=== PATIENT | male | born 1960 | race African-American/Black ===

== ENCOUNTER 2024-12-17 13:03 | Inpatient (IN) | payer OTHER, MEDICARE ==
[~2024-12-17] VITALS: Ht 170.2 cm; Wt 86.4 kg
[~2024-12-17 13:03] MED LIST: CYCL-837 PO; LIDO5CRE14 EX; MELO7.5T7 PO
--- NOTE | 2024-12-17 13:35 | ED.PDOC ---
History of Present Illness HPI Comments 64-year-old male came to the ER stating that he has been having abdominal pain since numerologist. He was at work when abdominal pain started. He had some food to eat ever since then he has been having abdominal pain. He did leave work go to the nearest ER which was intolerance. Turns did not have full workup stated that everything was normal sent home on nausea medication. While driving back from [facility] started to have abdominal pain. Abdominal pain nine of 10 with a nausea vomiting. History of hypertension. Denies any other symptoms. Time Seen by MD: 13:08 Reviewed Notes: Nurses Notes, Medications, Allergies Allergies: Coded Allergies: NO KNOWN ALLERGIES (Unverified , 12/17/24) Home Meds Active Scripts Lidocaine (Anorectal) (Lidocaine 5%) 5 % Cre, 5 % EX DAILYPRN PRN for 30 Days, #30 PATCH 0 Refills Prov:CLAY WAITE NP 09/04/23 Meloxicam (Meloxicam) 7.5 Mg Tab, 1 TAB PO DAILYP PRN for 30 Days, #30 TAB 0 Refills Prov:CLAY WAITE NP 09/04/23 Cyclobenzaprine Hcl (Cyclobenzaprine Hcl) 5 Mg Tab, 1 TAB PO QHSP PRN for 30 Days, #30 TAB 0 Refills Prov:CLAY WAITE NP 09/04/23 Information Source: Patient Mode of Arrival: Ambulatory Severity: Moderate Timing: Hours Duration: Since onset Past Medical History PAST MEDICAL HISTORY: HTN Surgical History: Denies all surgeries Family History Family History: Reviewed,noncontributory to illness Social History Smoker: Non-Smoker Alcohol: Denies ETOH Use Drugs: Denies Drug Use Constitutional: denies: chills, diaphoresis, fatigue, fever, malaise, sweats, weakness, others EENTM: denies: blurred vision, double vision, ear bleeding, ear discharge, ear drainage, ear pain, ear ringing, eye pain, eye redness, hearing loss, mouth pain, mouth swelling, nasal discharge, nose bleeding, nose congestion, nose pain, photophobia, tearing, throat pain, throat swelling, voice changes, others Respiratory: denies: cough, hemoptysis, orthopnea, SOB at rest, shortness of breath, SOB with excertion, stridor, wheezing, others Cardiovascular: denies: chest pain, dizzy spells, diaphoresis, Dyspnea on exertion, edema, irregular heart beat, left arm pain, lightheadedness, palpitations, PND, syncope, others Gastrointestinal: reports: abdominal pain, nausea, vomiting; denies: abdomen distended, blood streaked bowels, constipated, diarrhea, dysphagia, difficulty swallowing, hematemesis, melena, poor appetite, poor fluid intake, rectal bleeding, rectal pain, others Genitourinary: denies: burning, dysuria, flank pain, frequency, hematuria, incontinence, penile discharge, penile sore, pain, testicle pain, testicle swelling, urgency, others Neurological: denies: dizziness, fainting, headache, left sided numbness, left sided weakness, numbness, paresthesia, pre-existing deficit, right sided numbness, right sided weakness, seizure, speech problems, tingling, tremors, weakness, others Musculoskeletal: denies: back pain, gout, joint pain, joint swelling, muscle pain, muscle stiffness, neck pain, others Integumetry: denies: bruises, change in color, change in hair/nails, dryness, laceration, lesions, lumps, rash, wounds, others Allergic/Immunocompromised: denies: Difficulty Healing, Frequent Infections, Hives, Itching, others Hematologic/Lymphatic: denies: anemia, blood clots, easy bleeding, easy bruising, swollen glands, others Endocrine: denies: excessive hunger, excessive sweating, excessive thirst, excessive urination, flushing, intolerance to cold, intolerance to heat, unexplained weight gain, unexplained weight loss, others Psychiatric: denies: anxiety, bipolar disorder, depression, hopeless, panic disorder, schizophrenia, sleepless, suicidal, others Physical Exam General Appearance: Moderate Distress HEENT: Normal ENT Inspection, Pharynx Normal, TMs Normal Neck: Full Range of Motion, Non-Tender, Normal, Normal Inspection Respiratory: Chest Non-Tender, Lungs Clear, No Accessory Muscle Use, No Respiratory Distress, Normal Breath Sounds Cardiovascular: No Edema, No JVD, No Murmur, No Gallop, Normal Peripheral Pulses, Regular Rate/Rhythm Breast Exam: Deferred Gastrointestinal: No Organomegaly, Non Tender, No Pulsatile Mass, Normal Bowel Sounds, Soft Genitalia: Deferred Pelvic: Deferred Rectal: Deferred Extremities: No calf tenderness, Normal capillary refill, Normal inspection, Normal range of motion, Non-tender, No pedal edema Musculoskeletal : Apperance: Normal Neurologic: Alert, risk modeler II-XII nml as Tested, No Motor Deficits, Normal Affect, Normal Mood, No Sensory Deficits Cerebellar Function: Normal Reflexes: Normal Skin: Dry, Normal Color, Warm Peripheral Pulses: 3+ Radial (R), 3+ Radial (L) Lymphatic: No Adenopathy Was a procedure done? Was a procedure done?: No EKG EKG : Pulse Rate (adult): 82 Cardiac Rhythm: NSR Differential Dx Considerations may include: Gallstones Electrolyte imbalance X-Ray, Labs, Meds, VS Vital Signs Date Time Temp Pulse Resp B/P (MAP) Pulse Ox O2 Delivery O2 Flow Rate FiO2 12/17/24 13:53 99.4 81 15 153/86 (108) 99 99.4 Lab Test 12/17/24 13:40 Range/Units White Blood Count Pending Red Blood Count Pending Hemoglobin Pending Hematocrit Pending Mean Corpuscular Volume Pending Mean Corpuscular Hemoglobin Pending Mean Corpuscular Hemoglobin Concent Pending Red Cell Distribution Width Pending Platelet Count Pending Mean Platelet Volume Pending Neutrophils (%) (Auto) Pending Lymphocytes (%) (Auto) Pending Monocytes (%) (Auto) Pending Basophils (%) (Auto) Pending Neutrophils # (Auto) Pending Lymphocytes # (Auto) Pending Monocytes # (Auto) Pending Sodium Level Pending Potassium Level Pending Chloride Level Pending Carbon Dioxide Level Pending Anion Gap Pending Blood Urea Nitrogen Pending Creatinine Pending Glomerular Filtration Rate Calc Pending BUN/Creatinine Ratio Pending Serum Glucose Pending Calcium Level Pending Total Bilirubin Pending Aspartate Amino Transferase (AST) Pending Alanine Aminotransferase (ALT) Pending Alkaline Phosphatase Pending Troponin I High Sensitivity Pending Total Protein Pending Albumin Pending Patient alert. Complaining of abdominal pain nausea vomiting. Vitals stable. Answering questions. Reviewed his visit to [facility]. Was discharged on nausea medication. Possible gallstones. Possibly need nuclear scan. Establish intravenous access. Was given fluids. Was given morphine. Was given Zofran. Explained to the patient. Continue monitoring. Time of 1ST Reevaluation: 13:33 Reevaluation 1ST: Unchanged Patient Education/Counseling: Diagnosis, Treatment, Prognosis Family Education/Counseling: No Family Present SEPSIS Sepsis Screen Physician Orders Troponin-I Hs (12/17/24 13:25) Complete Blood Count (12/17/24 13:25) Comprehensive Metabolic Panel (12/17/24 13:25) Urinalysis (12/17/24 13:25) Sodium Chloride 0.9% (12/17/24 13:30) Sodium Chloride 0.9% (12/17/24 13:30) Ct Ab Pel Wo Con-No Oral Or Iv (12/17/24 13:25) Vital Signs Date Time Temp Pulse Resp B/P (MAP) Pulse Ox O2 Delivery O2 Flow Rate FiO2 12/17/24 13:53 99.4 81 15 153/86 (108) 99 99.4 Laboratory Tests Test 12/17/24 13:40 White Blood Count Pending Departure 1 Departure Time of Disposition: 13:34 Impression: Primary Impression: Acute abdominal pain Disposition: 09 ADMITTED INPATIENT Admit to: Med Surg Condition: Guarded Critical Care Note Critical Care Time?: No Stability Stability form required: No Heart Score Heart Score: Heart Score Response (Comments) Value History N/A 0 EKG N/A 0 Age N/A 0 Risk Factors N/A 0 Troponin N/A 0 Total 0 ANIKA TALAVERA MD Dec 17, 2024 13:35
[2024-12-17 14:05] LABS: Hematocrit 41.7 % (41.0-53.0); Hemoglobin 13.9 g/dL (13.5-17.5); Mean Corpuscular Hemoglobin 27.4 pg (28.0-32.0); Mean Corpuscular Volume 82.5 fL (80.0-100.0); Nucleated Red Blood Cells % 0.1 %
--- NOTE | 2024-12-17 14:12 | ECG ---
[facility] Test Date: 2024-12-17 Test Time: 13:57:06 Pat Name: VIOLA SERNA Department: er Room: [address] [place] [address] Gender: M Central Sterile Technician: gp : 1960 Requested By: ANIKA TALAVERA Order Number: [id number] Reading MD: Jesus Doshi Measurements Intervals Murray Rate: 82 P: 30 ND: 178 QRS: 100 QRSD: 94 T: -29 QT: 354 QTc: 414 Interpretive Statements Sinus rhythm Right axis deviation Abnormal T, consider ischemia, inferior leads Electronically Signed On 12-19-2024 16:58:48 PDT by Jesus Doshi Please click the below link to view image of tracing.
[2024-12-17 14:22] LABS: Alanine Aminotransferase 35 U/L (7-40); Albumin 4.5 g/dL (3.2-4.8); Alkaline Phosphatase 59 U/L (46-116); Anion Gap 9 (5-15); BUN/Creatinine Ratio 9.7 (10.0-20.0); Bilirubin, Total 0.8 mg/dL (0.2-1.0); Blood Urea Nitrogen 12 mg/dL (9-23); Calcium 10.1 mg/dL (8.7-10.4); Carbon Dioxide 26 mmol/L (20-31); Chloride 105 mmol/L (98-107); Potassium 4.3 mmol/L (3.5-5.1); Sodium 140 mmol/L (136-145); Total Protein 6.9 g/dL (5.7-8.2)
[2024-12-17 14:23] LABS: Glucose 122 mg/dL (74-106)
[2024-12-17 15:49] LABS: Urine Budding Yeast OCCASIONAL /hpf (None Seen); Urine Protein, UAD TRACE (Negative)
[2024-12-17] MEDS: MORPHINE SULFATE 4 MG/ML SYR/VIAL IV ONE (15:49)
[2024-12-17] MEDS: SODIUM CHLORIDE 0.9% 1,000 ML IV ONE ×2 (15:59→16:07)
[2024-12-17 16:06] VITALS: PULSE 79; RESP 16; O2SAT 98
[2024-12-17] MEDS: ONDANSETRON HCL 4 MG/2 ML VIAL IV ONE (16:06)
[2024-12-17] MEDS: KETOROLAC TROMETH 30 MG/ML 1ML VIAL IV ONE (16:07)
[2024-12-17] MEDS ORDERED: ONDANSETRON HCL 4 MG/2 ML VIAL IV PRN (16:30)
[2024-12-17] MEDS ORDERED: hydrALAZINE HCL 20 MG/ML VL IV PRN ×2 (16:30→17:45)
[2024-12-17] MEDS ORDERED: ACETAMINOPHEN 325 MG TAB PO PRN (16:30)
[2024-12-17] MEDS ORDERED: HYDROmorphone HCL 2 MG/ML VL/or syr IV PRN (16:30)
[2024-12-17] MEDS: SODIUM CHLORIDE 0.9% 1,000 ML IV SCH (16:30)
[2024-12-17] MEDS: PANTOPRAZOLE 40 MG/10 ML VIAL INJ IV ONE (16:55)
[2024-12-17] MEDS: IOHEXOL 300 MG/ML 100ML BOTTLE IJ ONE (17:16)
--- NOTE | 2024-12-17 17:42 | DVHHP2 ---
History of Present Illness Reason for Visit: Acute abdominal pain History of Present Illness The patient is a 64-year-old male with past medical history hypertension and hyperlipidemia who presented to [facility] ED with complaint of abdominal pain. Patient reports symptoms progressively get worse with nausea, vomiting, and chills, rating pain 9/10 numeric scale, getting worse that prompted this visit. Patient was seen and evaluated in the ED, laboratory data shows WBC 8.4, platelets 302, sodium 140, potassium 4.3, BUN 12, creatinine 1.24, GFR 65, glucose 122, hemoglobin A1c 6.1, calcium 10.1, troponin < 3, blood pressure 147/84, heart rate 79, temperature 99.4 F, O2 saturation 98% on room a ir. Abdomen/pelvis CT showed no findings to suggest bowel obstruction, no nephrolithiasis, hydronephrosis, revealing prostate measures 5.1 x 5.2 cm. Patient was given Toradol 30 mg IV x1, please see medication orders section in the computer. On my assessment, patient denied chest pain, no headache, no dizziness, no shortness of breaths, no nausea or vomiting at this moment, noted low-grade fever and chills. Patient was admitted for further evaluation and medical management. Past Medical History HTN, HLD Past Surgical History Denies all surgeries Family History Reviewed, noncontributory to the management of this case. Past Social History The patient lives at home, denies smoking, alcohol or illicit drugs abuse. Review of Systems Constitutional: Yes: Chills; No: Fever, Sweats, Weakness, Malaise, Other Eyes: No: Pain, Vision change, Conjunctivae inflammation, Eyelid inflammation, Other, Redness ENT: No: Ear pain, Ear discharge, Nose pain, Nose discharge, Nose congestion, Mouth pain, Mouth swelling, Throat pain, Throat swelling, Other Respiratory: No: Cough, Dry, Shortness of breath, SOB with excertion, Wheezing, Hemoptysis, Pleuritic Pain, Sputum, Wheezing, Other Cardiovascular: No: Chest Pain, Palpitations, Orthopnea, Paroxysmal Noc. Dyspnea, Edema, Lt Headedness, Other Gastrointestinal: Nausea, Vomiting, Abdominal Pain; No: Diarrhea, Constipation, Melena, Hematochezia, Other Genitourinary: No Dysuria, No Frequency, No Incontinence, No Hematuria, No Retention, No Other Musculoskeletal: No: other, neck pain, shoulder pain, arm pain, back pain, hand pain, leg pain, foot pain Skin: No: Rash, Lesions, Jaundice, Bruising, Other Neurological: No: Weakness, Numbness, Incoordination, Change in speech, Confusion, Seizures, Other Allergies: Coded Allergies: Morphine and Codeine (Verified Allergy, Unknown, 12/17/24) Medications Current Medications Medications Dose Ordered Sig/Robel Route Start Time Stop Time Status Last Admin Dose Admin Pantoprazole Sodium 40 mg DAILY IV 12/18/24 10:00 Hydralazine HCl 10 mg Q6HP PRN IV 12/17/24 16:30 Hydromorphone HCl 0.5 mg Q4HPRN PRN IV 12/17/24 16:30 Hold Sodium Chloride 1,000 ml @ 60 mls/hr [id number] IV 12/17/24 16:30 Ondansetron HCl 4 mg Q4HP PRN IV 12/17/24 16:30 Acetaminophen 650 mg Q6HP PRN PO 12/17/24 16:30 Exam Vital Signs Vital Signs Date Time Temp Pulse Resp B/P (MAP) Pulse Ox O2 Delivery O2 Flow Rate FiO2 12/17/24 16:06 79 16 98 Room Air* 0 21 12/17/24 16:06 147/84 (105) 12/17/24 13:53 99.4 99.4 General Appearance: Alert, Oriented X3, Cooperative, No acute distress HEENT: Atraumatic, PERRLA, EOMI, Mucous membr. moist/pink Respiratory: Clear to auscultation, Normal air movement Cardiovascular: Regular rate, Normal S1, Normal S2, No murmurs Abdominal: Normal bowel sounds, Soft, No tenderness, No hepatospenomegaly, No masses Extremities: No clubbing, No cyanosis, No edema, Normal pulses, No tenderness/swelling Skin: No rashes, No breakdown, No significant lesion Neuro: Normal gait, Normal speech, Strength at 5/5 X4 ext, Normal tone, Sensation intact, Cranial nerves 3-12 NL, Reflexes 2+ Psych/Mental Status: Mental status NL, Mood NL Labs/Xrays Labs Test 12/17/24 15:32 12/17/24 13:40 Range/Units Urine Color Yellow Yellow Urine Clarity Clear Clear Urine pH 7.5 5.0-9.0 Urine Specific [place] 1.033 1.001-1.035 Urine Protein Trace H Negative Urine Ketones Negative Negative Urine Blood Negative Negative /uL Urine Nitrite Negative Negative Urine Bilirubin Negative Negative Urine Urobilinogen Normal Negative mg/dL Urine Leukocyte Esterase Negative Negative /uL Urine RBC 3 0 - 3 /hpf Urine Microscopic WBC 7 H 0-3 /HPF Urine Squamous Epithelial Cells Few <5 /hpf Urine Bacteria None seen None Seen /hpf Urine Mucus Few None Seen Urine Yeast (Budding) Occasional None Seen /hpf Urine Glucose Normal Normal mg/dL White Blood Count 8.4 4.4-10.8 10^3/uL Red Blood Count 5.05 4.5-5.90 10^6/uL Hemoglobin 13.9 13.5-17.5 g/dL Hematocrit 41.7 41.0-53.0 % Mean Corpuscular Volume 82.5 80.0-100.0 fL Mean Corpuscular Hemoglobin 27.4 L 28.0-32.0 pg Mean Corpuscular Hemoglobin Concent 33.2 32.0-36.0 g/dL Red Cell Distribution Width 14.2 11.8-14.3 % Platelet Count 302 140-450 10^3/uL Mean Platelet Volume 8.2 6.9-10.8 fL Neutrophils (%) (Auto) 79.0 37.0-80.0 % Lymphocytes (%) (Auto) 14.6 10.0-50.0 % Monocytes (%) (Auto) 5.9 0.0-12.0 % Eosinophils (%) (Auto) 0.1 0.0-7.0 % Basophils (%) (Auto) 0.4 0.0-2.0 % Neutrophils # (Auto) 6.6 1.6-8.6 10 ^3/uL Lymphocytes # (Auto) 1.2 0.4-5.4 10 ^3/uL Monocytes # (Auto) 0.5 0-1.3 10 ^3/uL Eosinophils # (Auto) 0 0-0.8 10 ^3/uL Basophils # (Auto) 0 0-0.2 10 ^3/uL Nucleated Red Blood Cells 0.1 % Sodium Level 140 136-145 mmol/L Potassium Level 4.3 3.5-5.1 mmol/L Chloride Level 105 98-107 mmol/L Carbon Dioxide Level 26 20-31 mmol/L Anion Gap 9 5-15 Blood Urea Nitrogen 12 9-23 mg/dL Creatinine 1.24 0.700-1.30 mg/dL Glomerular Filtration Rate Calc 65 >90 mL/min BUN/Creatinine Ratio 9.7 L 10.0-20.0 Serum Glucose 122 H 74-106 mg/dL Calcium Level 10.1 8.7-10.4 mg/dL Total Bilirubin 0.8 0.2-1.0 mg/dL Aspartate Amino Transferase (AST) 27 13-40 U/L Alanine Aminotransferase (ALT) 35 7-40 U/L Alkaline Phosphatase 59 46-116 U/L Troponin I High Sensitivity < 3 L </=54 ng/L Total Protein 6.9 5.7-8.2 g/dL Albumin 4.5 3.2-4.8 g/dL PATIENT: VIOLA SERNA ACCT: [id number] UNIT: [id number] : 1960 LOC: OVERFLOW ROOM / BED: [address] [place] [address] AGE / SEX: 64 / M ADM STATUS: ADM IN SERVICE 1629 ORDERING PHYSICIAN: LANEY JOHNSON DNP PROCEDURE(s): ABPEL - CT AB PELVIS W WO CON-IV ONLY REASON: Nausea and vomiting ORDER NUMBER(s): [id number], ACCESSION NUMBER(s): [id number] Exam: CT CT AB PELVIS W WO CON-IV ONLY History: Nausea and vomiting Comparison Study: None Contrast: Type of contrast: Omnipaque 300 Contrast injected: 100 mL Contrast wasted: 0 TECHNIQUE: A digital assistant vice president image was obtained. During the uneventful, intravenous administration of contrast material, multislice data acquisition was obtained through the abdomen and pelvis. The data set was subsequently reconstructed into axial images. Images were reviewed on a work station using a combination of axial and multiplanar using a variety of window levels and settings. Radiation Dose Information: CT Dose: CTDI volume is 18.03 mGy. Dose-length product is 1998.24 mGy*cm FINDINGS: Lung Bases: No acute or significant lung base finding. Normal heart size. No pleural or pericardial effusion. Liver: The liver is normal in size. No focal lesions. Normal hepatic vascular enhancement. Gallbladder and Biliary Tree: Unremarkable Spleen: Unremarkable Pancreas: The pancreas is normal in appearance without focal lesions or abnormal enhancement. Adrenal Glands: Unremarkable Kidneys: Kidneys demonstrate normal symmetric enhancement without focal lesions, calculi or hydronephrosis. Bladder: Unremarkable Bowel: The stomach is grossly normal in appearance. Small bowel and colon are normal in caliber and distribution. The appendix is not visualized; however, no secondary findings of acute appendicitis identified. Ascites: Absent Lymphadenopathy: No mesenteric, retroperitoneal or periportal lymphadenopathy. Abdominal Wall and Mesentery: Unremarkable. Vasculature: The visualized abdominal aorta is normal in size and caliber. Abdominal and pelvic vessels demonstrate normal enhancement. Pelvic Organs: Prostate measures 5.1 x 5.2 cm. Correlate with PSA. Musculoskeletal: No aggressive focal bony lesions, acute fractures or dislocation. Soft tissues: Unremarkable. IMPRESSION: 1. No findings to suggest bowel obstruction. 2. No abnormally dilated small bowel or colon. 3. No nephrolithiasis or hydronephrosis. 4. Prostate measures 5.1 x 5.2 cm if of clinical concern correlate with PSA. SEPSIS Sepsis Screen Date sepsis recognized/suspect: Dec 17, 2024 Time Sepsis recognized/suspect: 1302 Recent Procedure: No On Antibiotic Therapy: No Respiratory Rate >20: No Heart Rate >90: No Temp<36 C (96.8 F) or >38.3 C: No SBP <90 or MAP <65 mmHG: No New Acute Mental Status Change: No Is the patient on CPAP, BIPAP,: No Physician Orders Sodium Chloride 0.9% (12/17/24 13:30) Ct Ab Pelvis W Wo Con-Iv Only (12/17/24 16:29) Pantoprazole (Protonix) (12/18/24 10:00) Hydralazine Injection (Apresoline Inject (12/17/24 16:30) Hydromorphone Injection (Dilaudid Inject (12/17/24 16:30) Allergies (12/17/24 16:29) Code Status (12/17/24 16:29) Sodium Chloride 0.9% (12/17/24 16:30) Oxygen Per Hour (12/17/24 16:29) Ondansetron Hcl (Zofran) (12/17/24 16:30) Complete Blood Count (12/18/24 04:00) Comprehensive Metabolic Panel (12/18/24 04:00) Condition: Serious (12/17/24 16:29) Acetaminophen Tablet (Tylenol Tablet) (12/17/24 16:30) Clear Liq Diet (12/17/24 Dinner) Bedrest With Bathroom Privileg (12/17/24 16:29) Sequential Compression Device (12/17/24 ) Metoprolol Tartrate Tablet (Lopressor Ta (12/17/24 22:00) Losartan Tablet (Cozaar Tablet) (12/18/24 10:00) Atorvastatin (Lipitor) (12/17/24 22:00) Hydralazine Injection (Apresoline Inject (12/17/24 17:45) Hemoglobin A1c (12/17/24 17:39) Admit (12/17/24 17:39) Nitroglycerin Sublingual (Ntrostat Subli (12/17/24 17:45) Morphine Sulfate Injection (12/17/24 17:45) Notify Of Changes From Base (12/17/24 17:39) Emergency Dysrhythmia Protocol (12/17/24 17:39) Oxygen By Nasal Cannula (12/17/24 17:39) Vital Signs Date Time Temp Pulse Resp B/P (MAP) Pulse Ox O2 Delivery O2 Flow Rate FiO2 12/17/24 16:06 79 16 98 Room Air* 0 21 12/17/24 16:06 79 16 147/84 (105) 98 12/17/24 14:01 82 12/17/24 13:57 82 12/17/24 13:53 99.4 81 15 153/86 (108) 99 99.4 Laboratory Tests Test 12/17/24 13:40 White Blood Count 8.4 10^3/uL (4.4-10.8) Medications Medications Dose Ordered Sig/Robel Route Start Time Stop Time Status Last Admin Dose Admin Ketorolac Tromethamine 30 mg ONCE ONCE IV 12/17/24 16:00 12/17/24 16:02 DC 12/17/24 16:07 30 MG Ondansetron HCl 4 mg ONCE ONCE IV 12/17/24 13:30 12/17/24 13:31 DC 12/17/24 16:06 4 MG Pantoprazole Sodium 40 mg ONCE ONCE IV 12/17/24 16:30 12/17/24 16:43 DC 12/17/24 16:55 40 MG Sodium Chloride 1,000 ml @ 1,000 mls/hr Q1H ONCE IV 12/17/24 13:30 7/21/25 14:29 DC 12/17/24 16:07 1,000 MLS/HR Assessment/Plan Assessment/Plan Acute abdominal pain Pre-diabetes Fever, unspecified BPH Benign prostatic hyperplasia Plan 1. Admit to telemetry unit 2. Breathing treatment 3. Pain control management 4. Management of fluids and electrolytes 5. Consultation for hospitalist 6. Diagnostic tests abdomen/pelvis CT 7. DVT prophylaxis on SCDs 8. Repeat labs CBC, CMP in a.m. 9. Continue with current medical management 10. Treatment plan discussed with patient and RN. Patient verbalized understanding. Plan discussed with: Patient, Other (RN) My Orders Orders - LANEY JOHNSON DNP Procedure Category Date Status Time Ct Ab Pelvis W Wo CT 12/17/24 Logged Con-Iv Only 16:29 Pantoprazole PHA 12/18/24 In Process (Protonix) 10:00 Hydralazine Injection PHA 12/17/24 In Process (Apresoline Inject 16:30 Hydromorphone PHA 12/17/24 In Process Injection (Dilaudid 16:30 Allergies JULIO 12/17/24 In Process 16:29 Code Status CODE 12/17/24 Transmitted 16:29 Sodium Chloride 0.9% PHA 12/17/24 In Process 16:30 Oxygen Per Hour RT 12/17/24 Transmitted 16:29 Ondansetron Hcl PHA 12/17/24 In Process (Zofran) 16:30 Complete Blood Count LAB 12/18/24 Verified 04:00 Comprehensive LAB 12/18/24 Verified Metabolic Panel 04:00 Condition: Serious JULIO 12/17/24 In Process 16:29 Acetaminophen Tablet PHA 12/17/24 In Process (Tylenol Tablet) 16:30 Clear Liq Diet DIET 12/17/24 Transmitted Dinner Bedrest With Bathroom JULIO 12/17/24 In Process Privileg 16:29 Sequential JULIO 12/17/24 In Process Compression Device Metoprolol Tartrate PHA 12/17/24 Transmitted Tablet (Lopressor Ta 22:00 Losartan Tablet PHA 12/18/24 Transmitted (Cozaar Tablet) 10:00 Atorvastatin (Lipitor) PHA 12/17/24 Transmitted 22:00 Hydralazine Injection PHA 12/17/24 Transmitted (Apresoline Inject 17:45 Hemoglobin A1c LAB 12/17/24 Transmitted 17:39 Admit ADMIT 12/17/24 Transmitted 17:39 Nitroglycerin [facility] 12/17/24 Transmitted Sublingual (Ntrostat 17:45 Morphine Sulfate PHA 12/17/24 Transmitted Injection 17:45 Notify Md Of Changes [facility] 12/17/24 Transmitted From Base 17:39 Emergency Dysrhythmia [facility] 12/17/24 Transmitted Protocol 17:39 Oxygen By Nasal RT 12/17/24 Transmitted Cannula 17:39 Problem List: (1) Acute abdominal pain (2) Pre-diabetes (3) Fever, unspecified (4) BPH (benign prostatic hyperplasia) Date of Service: Dec 17, 2024 Billing Provider: LANEY JOHNSON DNP Common Visit Codes: [id number] INP/OBS CARE (HIGH) LANEY JOHNSON DNP Dec 17, 2024 17:42
[2024-12-17] MEDS ORDERED: NITROGLYCERIN 0.4 MG SL TAB SL PRN (17:45)
[2024-12-17] MEDS ORDERED: MORPHINE SULFATE INJ 2 MG/ml SYRG IV PRN (17:45)
[2024-12-17 18:15] VITALS: BP 156/80; PULSE 81; RESP 18; TEMP 98.7; O2SAT 96
[2024-12-17 18:17] VITALS: BP 156/80; PULSE 81; RESP 18; TEMP 98.7; O2SAT 96
--- NOTE | 2024-12-17 18:46 | DVH ---
Exam: CT CT AB PELVIS W WO CON-IV ONLY History: Nausea and vomiting Comparison Study: None Contrast: Type of contrast: Omnipaque 300 Contrast injected: 100 mL Contrast wasted: 0 TECHNIQUE: A digital line mechanic image was obtained. During the uneventful, intravenous administration of c ontrast material, multislice data acquisition was obtained through the abdomen and pelvis. The data s et was subsequently reconstructed into axial images. Images were reviewed on a work station using a c ombination of axial and multiplanar using a variety of window levels and settings. Radiation Dose Information: CT Dose: CTDI volume is 18.03 mGy. Dose-length product is 1998.24 mGy*cm FINDINGS: Lung Bases: No acute or significant lung base finding. Normal heart size. No pleural or pericardial effusion. Liver: The liver is normal in size. No focal lesions. Normal hepatic vascular enhancement. Gallbladder and Biliary Tree: Unremarkable Spleen: Unremarkable Pancreas: The pancreas is normal in appearance without focal lesions or abnormal enhancement. Adrenal Glands: Unremarkable Kidneys: Kidneys demonstrate normal symmetric enhancement without focal lesions, calculi or hydroneph rosis. Bladder: Unremarkable Bowel: The stomach is grossly normal in appearance. Small bowel and colon are normal in caliber and d istribution. The appendix is not visualized; however, no secondary findings of acute appendicitis janelle ntified. Ascites: Absent Lymphadenopathy: No mesenteric, retroperitoneal or periportal lymphadenopathy. Abdominal Wall and Mesentery: Unremarkable. Vasculature: The visualized abdominal aorta is normal in size and caliber. Abdominal and pelvic vess els demonstrate normal enhancement. Pelvic Organs: Prostate measures 5.1 x 5.2 cm. Correlate with PSA. Musculoskeletal: No aggressive focal bony lesions, acute fractures or dislocation. Soft tissues: Unremarkable. IMPRESSION: 1. No findings to suggest bowel obstruction. 2. No abnormally dilated small bowel or colon. 3. No nephrolithiasis or hydronephrosis. 4. Prostate measures 5.1 x 5.2 cm if of clinical concern correlate with PSA. All CT scans at this medical facility are performed using dose modulation techniques as appropriate t o a performed exam including the following: Automated exposure control was utilized; adjustment of th e MA and/or KV according to patient size; and use of iterative reconstruction technique.
[2024-12-17] MEDS: METOPROLOL TARTRATE 25 MG TAB PO SCH (21:35)
[2024-12-17] MEDS: ATORVASTATIN 20 MG TAB PO SCH (21:36)
[2024-12-18 01:20] VITALS: BP 145/70; PULSE 69; RESP 16; TEMP 98; O2SAT 98
[2024-12-18 05:04] LABS: Alanine Aminotransferase 26 U/L (7-40); Albumin 4.0 g/dL (3.2-4.8); Alkaline Phosphatase 54 U/L (46-116); Anion Gap 10 (5-15); BUN/Creatinine Ratio 8.6 (10.0-20.0); Bilirubin, Total 0.9 mg/dL (0.2-1.0); Blood Urea Nitrogen 11 mg/dL (9-23); Carbon Dioxide 25 mmol/L (20-31); Glucose 92 mg/dL (74-106); Hematocrit 40.1 % (41.0-53.0); Hemoglobin 13.2 g/dL (13.5-17.5); Mean Corpuscular Hemoglobin 27.3 pg (28.0-32.0); Mean Corpuscular Volume 82.8 fL (80.0-100.0); Nucleated Red Blood Cells % 0.0 %; Potassium 4.1 mmol/L (3.5-5.1); Sodium 143 mmol/L (136-145); Total Protein 6.4 g/dL (5.7-8.2)
[2024-12-18 05:07] LABS: Calcium 8.7 mg/dL (8.7-10.4); Chloride 108 mmol/L (98-107)
[2024-12-18] MEDS: PANTOPRAZOLE 40 MG/10 ML VIAL INJ IV SCH (10:15)
[2024-12-18] MEDS: LOSARTAN POTASSIUM 50 MG TAB PO SCH (10:15)
[2024-12-18 10:18] LABS: Amphetamine Screen, Urine Neg (NEGATIVE); Barbiturate Scree,Urine Neg (NEGATIVE); Benzodiazephine Screen, Urine Neg (NEGATIVE); Cannabinoid Screen, Urine Neg (NEGATIVE); Cocaine Screen, Urine Neg (NEGATIVE); Opiate Scree,Urine Neg (NEGATIVE); Phencyclidine Screen, Urine Neg (NEGATIVE)
[2024-12-18] MEDS ORDERED: PANT40TA2 PO (12:45)
--- NOTE | 2024-12-18 13:26 | DVHDSRES ---
Discharge Summary Date of Admission Resident Creating Document: LUCIO ADORNO RESIDENT Dec 17, 2024 at 17:39 Date of Discharge: Dec 18, 2024 Admitting Diagnosis acute abdominal pain Labs/Diagnostic Data: Laboratory Results Test 12/18/24 04:08 12/17/24 19:29 12/17/24 15:32 12/17/24 13:40 White Blood Count 8.3 10^3/uL (4.4-10.8) Red Blood Count 4.84 10^6/uL (4.5-5.90) Hemoglobin 13.2 g/dL (13.5-17.5) Hematocrit 40.1 % (41.0-53.0) Mean Corpuscular Volume 82.8 fL (80.0-100.0) Mean Corpuscular Hemoglobin 27.3 pg (28.0-32.0) Mean Corpuscular Hemoglobin Concent 33.0 g/dL (32.0-36.0) Red Cell Distribution Width 14.1 % (11.8-14.3) Platelet Count 301 10^3/uL (140-450) Mean Platelet Volume 8.1 fL (6.9-10.8) Neutrophils (%) (Auto) 56.7 % (37.0-80.0) Lymphocytes (%) (Auto) 31.7 % (10.0-50.0) Monocytes (%) (Auto) 11.1 % (0.0-12.0) Eosinophils (%) (Auto) 0.3 % (0.0-7.0) Basophils (%) (Auto) 0.2 % (0.0-2.0) Neutrophils # (Auto) 4.7 10 ^3/uL (1.6-8.6) Lymphocytes # (Auto) 2.6 10 ^3/uL (0.4-5.4) Monocytes # (Auto) 0.9 10 ^3/uL (0-1.3) Eosinophils # (Auto) 0 10 ^3/uL (0-0.8) Basophils # (Auto) 0 10 ^3/uL (0-0.2) Nucleated Red Blood Cells 0.0 % Sodium Level 143 mmol/L (136-145) Potassium Level 4.1 mmol/L (3.5-5.1) Chloride Level 108 mmol/L (98-107) Carbon Dioxide Level 25 mmol/L (20-31) Anion Gap 10 (5-15) Blood Urea Nitrogen 11 mg/dL (9-23) Creatinine 1.28 mg/dL (0.700-1.30) Glomerular Filtration Rate Calc 62 mL/min (>90) BUN/Creatinine Ratio 8.6 (10.0-20.0) Serum Glucose 92 mg/dL (74-106) Calcium Level 8.7 mg/dL (8.7-10.4) Total Bilirubin 0.9 mg/dL (0.2-1.0) Aspartate Amino Transferase (AST) 22 U/L (13-40) Alanine Aminotransferase (ALT) 26 U/L (7-40) Alkaline Phosphatase 54 U/L (46-116) Total Protein 6.4 g/dL (5.7-8.2) Albumin 4.0 g/dL (3.2-4.8) Urine Color Yellow (Yellow) Urine Clarity Clear (Clear) Urine pH 7.5 (5.0-9.0) Urine Specific [place] 1.033 (1.001-1.035) Urine Protein Trace (Negative) Urine Ketones Negative (Negative) Urine Blood Negative /uL (Negative) Urine Nitrite Negative (Negative) Urine Bilirubin Negative (Negative) Urine Urobilinogen Normal mg/dL (Negative) Urine Leukocyte Esterase Negative /uL (Negative) Urine RBC 3 /hpf (0 - 3) Urine Microscopic WBC 7 /HPF (0-3) Urine Squamous Epithelial Cells Few /hpf (<5) Urine Bacteria None seen /hpf (None Seen) Urine Mucus Few (None Seen) Urine Yeast (Budding) Occasional /hpf (None Urine Glucose Normal mg/dL (Normal) Urine Opiates Screen Neg (NEGATIVE) Urine Fentanyl Screen Neg (NEGATIVE) Urine Barbiturates Screen Neg (NEGATIVE) Urine Phencyclidine Screen Neg (NEGATIVE) Urine Amphetamines Screen Neg (NEGATIVE) Urine Benzodiazepines Screen Neg (NEGATIVE) Urine Cocaine Screen Neg (NEGATIVE) Urine Cannabinoids Screen Neg (NEGATIVE) Hemoglobin A1c 6.1 % A1C (<5.7) Troponin I High Sensitivity < 3 ng/L (</=54) Other Laboratory Tests 12/18/24 04:08 Brief Hx & Hospital Course: A 64-year-old male with past medical history of hypertension and hyperlipidemia presented to [facility] Emergency yesterday with the complaints of abdominal pain Since yesterday. Patient reports symptoms of progressively worsening nausea after eating his dinner and headache for which he had to tablets of aspirin. This was followed by 4 episodes of vomiting, which was watery with no blood, followed by generalized abdominal pain which he rates as 8/ 10 in intensity, nonradiating which prompted him to visit the emergency department at another hospital. He was discharged from that hospital with antiemetics and the pain began again which is why he came to [facility]. patient denies any sick contacts, having food that was unusual or any travel history. He also denies any shortness of breath, dizziness, fever , chills or change in bowel movement. PMH: Hypertension, hyperlipidemia PSH: Denies any surgeries Family history: Patient reports that his father had colon cancer and in 1991 ( patient had colonoscopy in 2023 which was clear) past social history: Patient lives at home, denies smoking, alcohol or any illicit drug abuse Home medicines: Amlodipine, atorvastatin, metoprolol, losartan brief history of hospitalization: Patient came in with acute abdominal pain possibly due to gastroenteritis versus food poisoning versus gastritis. We started him on IV fluids and pantoprazole, followed by ondansetron p.r.n., hydralazine 10 mg q.6 PRN, and acetaminophen q.[address] abdomen and pelvis was done with contrast which was normal and showed no findings of bowel obstruction or dilated small bowel or colon, no nephrolithiasis or hydronephrosis seen. Prostate measures 5.1 into 5.2 cm and serum PSA was sent. Patient is now feeling better and is stable for discharge. He is not having no abdominal pain. Patient has been counseled to hydrate himself and not to eat too much of only food. He is being discharged on Protonix And counseled to continue his home medication for hypertension and hyperlipidemia. patient communicated understanding. Pt is lying on bed General Appearance: Alert, Oriented X3, Cooperative, Not in acute distress HEENT: Atraumatic, Mucous membranes moist/pink Respiratory: Clear to auscultation, Normal air movement, No added sounds Cardiovascular: Regular rate, Normal S1, Normal S2, No murmurs Abdominal: Active bowel sounds, Soft, no distention, no tenderness Extremities: No edema, Normal pulses, No tenderness/swelling Skin: No Significant rash, no breakage in skin Neuro: Normal speech, sensorimotor deficits none Psych/Mental Status: Mental status NL, Mood NL Nurse was there as pipe organ mechanic during examination Operations or Procedures Exam: CT CT AB PELVIS W WO CON-IV ONLY Contrast: Type of contrast: Omnipaque 300 Contrast injected: 100 mL Contrast wasted: 0 IMPRESSION: 1. No findings to suggest bowel obstruction. 2. No abnormally dilated small bowel or colon. 3. No nephrolithiasis or hydronephrosis. 4. Prostate measures 5.1 x 5.2 cm if of clinical concern correlate with PSA. All CT scans at this medical facility are performed using dose modulation techniques as appropriate to a performed exam including the following: Automated exposure control was utilized; adjustment of the MA and/or KV according to patient size; and use of iterative reconstruction technique. 1 Condition at Discharge: Stable Final Diagnosis/Problems List Acute abdominal pain possibly due to ?gastroenteritis versus ?gastritis versus ? Food poisoning ? BPH Discharge Disposition: Home Discharge Instruct/Medications Diet: Consistent carbohydrate, Cardiac 2g Na,low cholest Activity: No Restrictions, As Tolerated Follow Up/Referral: Follow up with PCP in 1 week Follow up in discharge Clinic within 1 week Medications: Patient will continue with home medications Prescribed Protonix Scheduled Pantoprazole Sodium Sesquihydr (Protonix), 40 MG PO DAILY Scheduled PRN Cyclobenzaprine Hcl (Cyclobenzaprine Hcl), 1 TAB PO QHSP PRN Lidocaine (Anorectal) (Lidocaine 5%), 5 % EX DAILYPRN PRN Meloxicam (Meloxicam), 1 TAB PO DAILYP PRN Discharge Statement: "Patient was advised to return to the ER or call 911 if any headaches, dizziness, shortness of breath, chest pain, abdominal pain, bleeding, fevers, or worsening of medical condition. Patient was counseled about treatment plan, medications, possible side effects, patientverbalized understanding. All questions were answered to the best of my ability. This discharge took greater then 30 minutes in planning, reviewing documentation, counseling the patient, and discussing with other team members." ASSESSMENT ASSESSMENT Assessment Acute abdominal pain possibly due to ?gastroenteritis versus ?gastritis versus ? Food poisoning Date of Service: Dec 18, 2024 Billing Provider: MARQUISE COLEMAN MD Common Visit Codes: 36262-TQV/OBS DISCH DAY >30min LUCIO ADORNO RESIDENT Dec 18, 2024 13:26 MARQUISE COLEMAN MD Dec 18, 2024 22:32
[2024-12-19 11:07] LABS: Prostate Specific Antigen 2.5 ng/mL (0.0-4.0)
== END 2024-12-18 14:14 | disposition home or self-care (01) | DRG 392 ==
LOC: ER 13:07 → OVERFLOW 17:39
PROVIDERS: ADMIT Internal Medicine; ATTEND Internal Medicine
DX: K29.70 Gastritis, unspecified, without bleeding (principal); K52.9 Noninfective gastroenteritis and colitis, unspecified; A05.9 Bacterial foodborne intoxication, unspecified; N40.0 Benign prostatic hyperplasia without lower urinary tract symptoms; R73.03 Prediabetes; E78.5 Hyperlipidemia, unspecified; I10 Essential (primary) hypertension; Z88.5 Allergy status to narcotic agent
CPT/HCPCS: 36415; 74178; 80053; 80307; 81001; 83036; 84154; 84484; 85025; 93005; 96361; 96374; 96375; G0378; J1885; J2405; J2470